=== PATIENT | male | born 1950 | race Caucasian/White ===

== ENCOUNTER 2017-03-01 01:30 | Emergency (ER) | payer MEDICAID ==
[~2017-03-01] VITALS: Ht 180.3 cm; Wt 81.6 kg
[~2017-03-01 01:30] MED LIST: LISIPOW
[2017-03-01] MEDS ORDERED: SODIUM CHLORIDE 0.9% 1,000 ML IVB ONE (06:17)
[2017-03-01] MEDS ORDERED: SODIUM CHLORIDE 0.9% 1,000 ML IV ONE ×2 (08:03)
[2017-03-01 12:03] VITALS: BP 142/78
== END 2017-03-01 14:13 | disposition home or self-care (01) ==
LOC: EDSEX 01:30 → ER 01:30 → EDBD 01:30 → ER 14:13
DX: F10.120 Alcohol abuse with intoxication, uncomplicated (principal); Z90.49 Acquired absence of other specified parts of digestive tract
CPT/HCPCS: 36415; 80320; 96360; 96361; 99284; J7030

== ENCOUNTER 2017-11-06 10:33 | Emergency (ER) | payer MEDICARE, MEDICAID ==
[~2017-11-06] VITALS: Ht 185.4 cm; Wt 88.5 kg
[2017-11-06 12:16] LABS: Amphetamine Screen, Urine NEGATIVE (NEGATIVE); Barbiturate Scree,Urine NEGATIVE (NEGATIVE); Benzodiazephine Screen, Urine NEGATIVE (NEGATIVE); Cannabinoid Screen, Urine NEGATIVE (NEGATIVE); Cocaine Screen, Urine NEGATIVE (NEGATIVE); Opiate Scree,Urine NEGATIVE (NEGATIVE); Phencyclidine Screen, Urine NEGATIVE (NEGATIVE)
[2017-11-06 12:18] LABS: Urine Bacteria NONE SEEN /hpf (None Seen); Urine Blood Negative /uL (Negative); Urine Specific Gravity 1.005 (1.001-1.035); Urine WBC <1 /hpf (0 - 3)
[2017-11-06 12:37] LABS: Basophils # (auto) 0.1 uL; Basophils % (auto) 0.7 % (0.0-2.0); Eosinophils # (auto) 0.1 uL; Eosinophils % (auto) 1.1 % (0.0-7.0); Hematocrit 44.5 % (41.0-53.0); Hemoglobin 15.3 g/dL (13.5-17.5); Lymphocytes # (auto) 1.9 uL; Lymphocytes % (auto) 22.9 % (10.0-50.0); Mean Corpuscular Hemoglobin 30.5 pg (28.0-32.0); Mean Corpuscular Hgb Conc. 34.4 g/dL (32.0-36.0); Mean Corpuscular Volume 88.7 fL (80.0-100.0); Monocytes # (auto) 0.4 uL; Neutrophils # (auto) 5.7 uL; Neutrophils % (auto) 70.3 % (37.0-80.0); Nucleated Red Blood Cells % 0.4 %; Platelet Count (auto) 251 10^3/uL (140-450); Red Blood Cells 5.01 10^6/uL (4.5-5.90); Red Cell Distribution Width 18.6 % (11.8-14.3); White Blood Cell 8.2 10^3/uL (4.4-10.8)
[2017-11-06 13:01] LABS: Alanine Aminotransferase 41 U/L (16-61); Albumin 4.1 g/dL (3.4-5.0); Alkaline Phosphatase 136 U/L (45-117); Anion Gap 11 (5-15); Aspartate Aminotransferase 30 U/L (15-37); BUN/Creatinine Ratio 12.3; Bilirubin, Total 0.4 mg/dL (0.2-1.0); Blood Urea Nitrogen 10 mg/dL (7-18); Calcium 8.7 mg/dL (8.5-10.1); Carbon Dioxide 24 mmol/L (21-32); Chloride 105 mmol/L (98-107); GFR African American 123 mL/min; GFR Non-African American 102 mL/min; Glucose 106 mg/dL (74-106); Potassium 3.9 mmol/L (3.5-5.1); Sodium 140 mmol/L (136-145); Total Protein 8.7 g/dL (6.4-8.2)
[2017-11-06 13:04] LABS: Lactic Acid w/Reflex 2.2 mmol/L (0.4-2.0)
[2017-11-06] MEDS ORDERED: SODIUM CHLORIDE 0.9% 1,000 ML IV ONE ×2 (13:36)
[2017-11-06] MEDS ORDERED: THIAMINE HCL 100 MG/ML 2ML VIAL IV ONE (13:45)
[2017-11-06] MEDS ORDERED: cefTRIAXone 1GM/10ml IVPUSH 10 ML IV ONE (13:45)
[2017-11-06] MEDS ORDERED: HYDROcodone-ACET 10/325MG TAB PO ONE (15:00)
[2017-11-06 18:00] VITALS: BP 121/83
== END 2017-11-06 18:28 | disposition home or self-care (01) ==
LOC: ER 10:33 → EDBD 10:33 → ER 18:28
DX: E87.2 Acidosis (principal); I10 Essential (primary) hypertension; Z89.432 Acquired absence of left foot
CPT/HCPCS: 36415; 70450; 71045; 80053; 80307; 80320; 81001; 83605; 84484; 85025; 87040; 93005; 94761; 96361; 96374; 96375; 99285; J3411; J7030

== ENCOUNTER 2018-12-31 11:27 | Emergency (ER) | payer MEDICARE, MEDICAID ==
[~2018-12-31] VITALS: Ht 180.3 cm; Wt 81.6 kg
[2018-12-31 13:55] LABS: Basophils # (auto) 0 uL; Basophils % (auto) 0.4 % (0.0-2.0); Eosinophils # (auto) 0.1 uL; Eosinophils % (auto) 0.9 % (0.0-7.0); Hematocrit 38.4 % (41.0-53.0); Hemoglobin 12.9 g/dL (13.5-17.5); Lymphocytes # (auto) 1.2 uL; Lymphocytes % (auto) 13.4 % (10.0-50.0); Mean Corpuscular Hemoglobin 32.7 pg (28.0-32.0); Mean Corpuscular Hgb Conc. 33.6 g/dL (32.0-36.0); Mean Corpuscular Volume 97.2 fL (80.0-100.0); Monocytes # (auto) 0.5 uL; Monocytes % (auto) 5.7 % (0.0-12.0); Neutrophils # (auto) 7.1 uL; Neutrophils % (auto) 79.6 % (37.0-80.0); Platelet Count (auto) 289 10^3/uL (140-450); Red Blood Cells 3.95 10^6/uL (4.5-5.90); Red Cell Distribution Width 14.2 % (11.8-14.3); White Blood Cell 8.9 10^3/uL (4.4-10.8)
[2018-12-31 14:11] LABS: Albumin 3.4 g/dL (3.4-5.0); Potassium 4.1 mmol/L (3.5-5.1)
[2018-12-31 14:13] LABS: BUN/Creatinine Ratio 26.6; Bilirubin, Total 0.8 mg/dL (0.2-1.0); Total Protein 7.5 g/dL (6.4-8.2)
[2018-12-31] MEDS ORDERED: SODIUM CHLORIDE 0.9% 1,000 ML IVB ONE (17:14)
[2018-12-31] MEDS ORDERED: cefTRIAXone 1GM/50ML D5W 50 ML IV ONE (17:15)
[2018-12-31] MEDS ORDERED: HYDROcodone-ACET 10/325MG TAB PO ONE (18:45)
[2018-12-31 18:56] LABS: Urine Bacteria FEW /hpf (None Seen); Urine Blood 2+ /uL (Negative); Urine Mucus FEW (None Seen); Urine Specific Gravity 1.031 (1.001-1.035); Urine WBC 20 /hpf (0 - 3)
[2018-12-31 19:15] VITALS: BP 134/86
== END 2018-12-31 20:21 | disposition home or self-care (01) ==
LOC: ER 11:32
DX: T83.098A Other mechanical complication of other urinary catheter, initial encounter (principal); T83.511A Infection and inflammatory reaction due to indwelling urethral catheter, initial encounter; I25.10 Atherosclerotic heart disease of native coronary artery without angina pectoris; I10 Essential (primary) hypertension; Z90.49 Acquired absence of other specified parts of digestive tract; Z79.899 Other long term (current) drug therapy; Z98.61 Coronary angioplasty status; Y84.6 Urinary catheterization as the cause of abnormal reaction of the patient, or of later complication, without mention of misadventure at the time of the procedure; Y92.89 Other specified places as the place of occurrence of the external cause
CPT/HCPCS: 36415; 51702; 74176; 80053; 81001; 85025; 94761; 96365; 99284; J0696; J7030

== ENCOUNTER 2019-01-12 14:36 | Inpatient (IN) | payer MEDICARE, MEDICAID | END 2019-01-13 16:58 | disposition home or self-care (01) | LOC: TELE 01-13 00:16 → ER 14:36 → TELE-WESTW 01-13 02:51 ==

== ENCOUNTER 2019-06-16 17:47 | Emergency (ER) | payer MEDICARE, MEDICAID ==
[~2019-06-16] VITALS: Ht 177.8 cm; Wt 86.2 kg
[2019-06-16 19:11] LABS: Basophils # (auto) 0 uL; Eosinophils # (auto) 0 uL; Hematocrit 38.6 % (41.0-53.0); Hemoglobin 13.5 g/dL (13.5-17.5); Lymphocytes # (auto) 0.7 uL; Monocytes # (auto) 0.5 uL; Neutrophils # (auto) 4.6 uL; Nucleated Red Blood Cells % 0.1 %; White Blood Cell 5.8 10^3/uL (4.4-10.8)
[2019-06-16 19:13] LABS: Basophils % (auto) 0.2 % (0.0-2.0); Eosinophils % (auto) 0.3 % (0.0-7.0); Lymphocytes % (auto) 12.5 % (10.0-50.0); Mean Corpuscular Hemoglobin 35.4 pg (28.0-32.0); Mean Corpuscular Hgb Conc. 34.9 g/dL (32.0-36.0); Mean Corpuscular Volume 101.4 fL (80.0-100.0); Monocytes % (auto) 8.3 % (0.0-12.0); Neutrophils % (auto) 78.7 % (37.0-80.0); Platelet Count (auto) 115 10^3/uL (140-450); Red Blood Cells 3.81 10^6/uL (4.5-5.90); Red Cell Distribution Width 14.6 % (11.8-14.3)
[2019-06-16 19:36] LABS: Albumin 3.6 g/dL (3.4-5.0); Calcium 8.8 mg/dL (8.5-10.1); Potassium 3.8 mmol/L (3.5-5.1)
[2019-06-16 19:39] LABS: Bilirubin, Total 2.5 mg/dL (0.2-1.0); Total Protein 7.3 g/dL (6.4-8.2)
[2019-06-16] MEDS ORDERED: FOLIC ACID 1 MG, MULTIPLE VITAMIN 10 ML, MAGNESIUM SULF SDV 50% 8 MEQ, THIAMINE INJ 100... INJ SCH ×5 (22:00)
[2019-06-16] MEDS ORDERED: LEVETIRACETAM INJ 1,000 MG in D5W 5% 100 ML IV ONE (22:00)
[2019-06-16] MEDS ORDERED: LORazepam 2MG/ML-1ML VIAL IV ONE (22:00)
[2019-06-16] MEDS ORDERED: LEVETIRACETAM 500 MG/5ML INJ IV ONE (22:14)
[2019-06-16] MEDS ORDERED: LORazepam 0.5 MG TAB PO ONE (22:45)
[2019-06-16 22:55] VITALS: BP 124/71
== END 2019-06-16 23:00 | disposition home or self-care (01) ==
LOC: EDBD 17:47 → ER 17:54
DX: G40.909 Epilepsy, unspecified, not intractable, without status epilepticus (principal); F10.239 Alcohol dependence with withdrawal, unspecified; K70.30 Alcoholic cirrhosis of liver without ascites; I10 Essential (primary) hypertension; I25.2 Old myocardial infarction; Z98.61 Coronary angioplasty status; Y90.9 Presence of alcohol in blood, level not specified
CPT/HCPCS: 36415; 70450; 80053; 80320; 85025; 96365; 99284; J1953; J7060; 96374

== ENCOUNTER 2020-01-13 21:25 | Inpatient (IN) | payer MEDICARE, MEDICAID ==
[~2020-01-13] VITALS: Ht 182.9 cm; Wt 90.5 kg
[2020-01-13 22:33] LABS: Basophils # (auto) 0.1 10 ^3/uL (0-0.2); Basophils % (auto) 1.4 % (0.0-2.0); Eosinophils # (auto) 0.1 10 ^3/uL (0-0.8); Eosinophils % (auto) 1.3 % (0.0-7.0); Hematocrit 35.6 % (41.0-53.0); Hemoglobin 12.1 g/dL (13.5-17.5); Lymphocytes # (auto) 0.7 10 ^3/uL (0.4-5.4); Mean Corpuscular Hemoglobin 35.1 pg (28.0-32.0); Mean Corpuscular Hgb Conc. 34.1 g/dL (32.0-36.0); Mean Corpuscular Volume 102.8 fL (80.0-100.0); Monocytes # (auto) 0.4 10 ^3/uL (0-1.3); Monocytes % (auto) 8.6 % (0.0-12.0); Neutrophils # (auto) 3.8 10 ^3/uL (1.6-8.6); Neutrophils % (auto) 74.7 % (37.0-80.0); Nucleated Red Blood Cells % 0.4 %; Platelet Count (auto) 238 10^3/uL (140-450); Red Blood Cells 3.46 10^6/uL (4.5-5.90); Red Cell Distribution Width 15.3 % (11.8-14.3); White Blood Cell 5.1 10^3/uL (4.4-10.8)
[2020-01-13 23:07] LABS: Albumin 3.1 g/dL (3.4-5.0); BUN/Creatinine Ratio 9.2; Calcium 8.2 mg/dL (8.5-10.1); Potassium 3.8 mmol/L (3.5-5.1)
[2020-01-13 23:25] LABS: Bilirubin, Total 1.1 mg/dL (0.2-1.0); Total Protein 6.7 g/dL (6.4-8.2)
[2020-01-14] MEDS ORDERED: ACETAMINOPHEN 325 MG TAB PO PRN (02:45)
[2020-01-14] MEDS ORDERED: MORPHINE SULFATE 4 MG/ML SYR/VIAL IV PRN (02:45)
[2020-01-14] MEDS ORDERED: ONDANSETRON HCL 4 MG/2 ML VIAL IV PRN (02:45)
[2020-01-14] MEDS ORDERED: LORazepam 0.5 MG TAB PO PRN (02:45)
[2020-01-14] MEDS ORDERED: DOCUSATE SOD 100 MG CAP PO PRN (02:45)
[2020-01-14] MEDS ORDERED: IPRATROPIUM BROM 0.5 MG/2.5ML INH SOL NEB PRN (03:00)
[2020-01-14] MEDS ORDERED: ALBUTEROL SULF 2.5 MG/0.5ML(0.5%) NEB SOLN NEB PRN (03:00)
[2020-01-14 03:28] VITALS: BP 140/104
--- NOTE | 2020-01-14 03:28 | NUR ---
Telemetry admit from ER NIECYSURINDER admitted to Telemetry unit after SBAR received. Patient oriented to Jeana camp RN, unit, room, bed, and unit policies regarding patient care and visiting hours. Patient now on continuous telemetry monitoring, tele box # 76 and telemetry reading on arrival to unit is SR89,1st.degree heart block. Patient placed on bedside oxygen, weighed by bed scale and encouraged to call if they need something. All questions and concerns addressed, patient verbalized understanding. Note: Came per wheelchair awake alert oriented x 4, not in resp. distress, placed in the bed comfortably, vital signs checked.
[2020-01-14] MEDS: SODIUM CHLORIDE 0.9% 1,000 ML IV SCH ×3 (04:23→18:50)
[2020-01-14] MEDS: HYDROcodone-ACET 5/325MG TAB PO PRN ×2 (04:23→17:10)
[2020-01-14] MEDS ORDERED: ISOS30TA4 PO (04:52)
[2020-01-14] MEDS ORDERED: METO25TA93 (04:52)
[2020-01-14] MEDS ORDERED: TAMS1CAP25 (04:52)
--- NOTE | 2020-01-14 04:55 | NUR ---
Spoke with patient's sister Rae Small regarding patient's home medications. Rae unable to provide information about medications at this time, but stated she would call back with information. Primary RN Jennifer rose.
[2020-01-14 05:00] VITALS: BP 163/88
[2020-01-14 07:02] LABS: Basophils # (auto) 0 10 ^3/uL (0-0.2); Eosinophils # (auto) 0.1 10 ^3/uL (0-0.8); Hemoglobin 12.4 g/dL (13.5-17.5); Monocytes # (auto) 0.4 10 ^3/uL (0-1.3)
[2020-01-14 07:04] LABS: Basophils % (auto) 0.6 % (0.0-2.0); Eosinophils % (auto) 1.7 % (0.0-7.0); Hematocrit 36.6 % (41.0-53.0); Lymphocytes # (auto) 0.6 10 ^3/uL (0.4-5.4); Lymphocytes % (auto) 11.2 % (10.0-50.0); Mean Corpuscular Hemoglobin 34.9 pg (28.0-32.0); Mean Corpuscular Hgb Conc. 33.8 g/dL (32.0-36.0); Mean Corpuscular Volume 103.2 fL (80.0-100.0); Neutrophils # (auto) 4.1 10 ^3/uL (1.6-8.6); Neutrophils % (auto) 78.5 % (37.0-80.0); Nucleated Red Blood Cells % 0.2 %; Platelet Count (auto) 239 10^3/uL (140-450); Red Blood Cells 3.55 10^6/uL (4.5-5.90); Red Cell Distribution Width 15.3 % (11.8-14.3); White Blood Cell 5.2 10^3/uL (4.4-10.8)
[2020-01-14 07:05] LABS: Urine Bacteria NONE SEEN /hpf (None Seen); Urine Blood Negative /uL (Negative); Urine Specific Gravity 1.007 (1.001-1.035); Urine WBC 1 /hpf (0 - 3)
--- NOTE | 2020-01-14 07:05 | NUR ---
Report given to Mya, patient is resting no distress.
--- NOTE | 2020-01-14 07:07 | NUR ---
Opening Shift Note: Assumed care of patient, awake and alert. No S/S of distress/SOB or pain. Bed in lowest locked position, side rails up x2, call light within reach. Patient instructed on POC and to call for assist PRN, will continue to monitor for changes Q1hr and PRN.
[2020-01-14 07:29] LABS: Amphetamine Screen, Urine NEGATIVE (NEGATIVE); Barbiturate Scree,Urine NEGATIVE (NEGATIVE); Benzodiazephine Screen, Urine NEGATIVE (NEGATIVE); Cannabinoid Screen, Urine NEGATIVE (NEGATIVE); Cocaine Screen, Urine NEGATIVE (NEGATIVE); Opiate Scree,Urine NEGATIVE (NEGATIVE); Phencyclidine Screen, Urine NEGATIVE (NEGATIVE)
[2020-01-14 07:31] LABS: Calcium 8.5 mg/dL (8.5-10.1); Potassium 3.9 mmol/L (3.5-5.1)
--- NOTE | 2020-01-14 08:38 | NUR ---
PAIN Patient states pain level 8/10 in back and knees. Appropriate medications given. Will continue to monitor.
[2020-01-14 09:00] VITALS: BP 134/85
--- NOTE | 2020-01-14 09:15 | NUR ---
PAIN REASSESSMENT Patient states pain level 5/10. Patient provided with heat pack at this time.
[2020-01-14] MEDS: CYANOCOBALAMIN 500 MCG TAB PO SCH (09:51)
[2020-01-14] MEDS: ASPirin 81 mg TAB PO SCH (09:51)
[2020-01-14] MEDS: FOLIC ACID 1 MG TAB PO SCH (09:52)
[2020-01-14] MEDS ORDERED: LISINOPRIL 10 MG TAB PO SCH (10:00)
[2020-01-14 13:00] VITALS: BP 139/89
--- NOTE | 2020-01-14 13:24 | NUR ---
Dr. Ronquillo paged at this time regarding possible DTs.
--- NOTE | 2020-01-14 13:45 | NUR ---
Dr. Ronquillo called back. New orders received, read back and verified.
[2020-01-14] MEDS ORDERED: THIAMINE HCL 100 MG TAB PO ONE (14:00)
[2020-01-14] MEDS ORDERED: MULTIPLE VITAMIN TAB PO ONE (14:00)
--- NOTE | 2020-01-14 14:26 | NUR ---
Dr. Ronquillo called regarding home medications. Per Dr. Ronquillo "I will figure it out tomorrow." Information relayed to patient. Patient verbally agreed. Will continue to monitor.
[2020-01-14 16:52] VITALS: BP 144/96
[2020-01-14] MEDS: chlordiazePOXIDE HCL 25 MG CAP PO SCH ×2 (17:09→23:37)
--- NOTE | 2020-01-14 17:10 | NUR ---
PAIN Patient states pain level 6/10. Appropriate pain medication given. Will continue to monitor.
[2020-01-14] MEDS ORDERED: ATORVASTATIN 20 MG TAB PO SCH (18:00)
--- NOTE | 2020-01-14 18:10 | NUR ---
PAIN REASSESSMENT PATIENT STATES PAIN LEVEL 3/10. PER PATIENT "PAIN IS BETTER." WILL CONTINUE TO MONITOR.
[2020-01-14] MEDS ORDERED: ISOSORBIDE MONONITRATE ER 60 MG TAB PO ONE (18:30)
--- NOTE | 2020-01-14 19:19 | NUR ---
CLOSING NOTE: Patient resting in bed. No S/S of pain distress or SOB at this time. Care endorsed to NOC RN.
--- NOTE | 2020-01-14 20:00 | NUR ---
DR VALENTINO, NEURO AT BEDSIDE TO SEE PATIENT. ORDERS MADE AND TO FOLLOW. NOTED.
[2020-01-14] MEDS ORDERED: LORazepam 2MG/ML-1ML VIAL IV PRN (21:00)
[2020-01-14] MEDS: MORPHINE SULF INJ 2 MG/ML SYRINGE 1ML IV PRN (21:01)
[2020-01-14 21:19] VITALS: BP 135/85
[2020-01-15 01:18] VITALS: BP 135/85
[2020-01-15] MEDS: chlordiazePOXIDE HCL 25 MG CAP PO SCH ×2 (04:40→11:07)
[2020-01-15] MEDS: MORPHINE SULF INJ 2 MG/ML SYRINGE 1ML IV PRN (04:40)
[2020-01-15 05:33] VITALS: BP 151/93
[2020-01-15 06:38] LABS: Calcium 8.3 mg/dL (8.5-10.1); Potassium 4.2 mmol/L (3.5-5.1)
[2020-01-15 06:43] LABS: BUN/Creatinine Ratio 14.3; Bilirubin, Total 1.8 mg/dL (0.2-1.0); Total Protein 6.3 g/dL (6.4-8.2)
--- NOTE | 2020-01-15 07:20 | NUR ---
Opening Shift Note Assumed care of patient, resting in bed with eyes closed. No S/S of distress/SOB or pain.Bed is set in lowest locked position with side rails up x 2 for safety, seizure precautions in place and call light is within reach. Will continue to monitor for changes Q1hr and PRN.
[2020-01-15 08:05] VITALS: BP 133/90
--- NOTE | 2020-01-15 08:35 | NUR ---
PT ASSESSED FOR PRN HHN TX. PT IS ON ROOM AIR, SPO2 93%, HR 83, RR 18. NO S/S OF RESPIRATORY DISTRESS. HHN TX NOT INDICATED AT THIS TIME. WILL CONTINUE TO MONITOR.
--- NOTE | 2020-01-15 08:38 | NUR ---
MD at bedside Dr. Ronquillo, updated pt on POC and plans for discharge. Patient verbalized understanding.
[2020-01-15] MEDS: SODIUM CHLORIDE 0.9% 1,000 ML IV SCH (08:42)
[2020-01-15 09:00] VITALS: BP 133/90
[2020-01-15] MEDS: HYDROcodone-ACET 5/325MG TAB PO PRN ×2 (09:04→14:42)
[2020-01-15] MEDS ORDERED: ENOXAPARIN SOD 40 MG/0.4 ML SYRINGE SC SCH (10:00)
[2020-01-15] MEDS ORDERED: MULTIPLE VITAMIN TAB PO SCH (10:00)
[2020-01-15] MEDS ORDERED: METOPROLOL SUCCINATE XL 50 MG TAB PO SCH (10:00)
[2020-01-15] MEDS ORDERED: ISOSORBIDE MONONITRATE ER 60 MG TAB PO SCH (10:00)
[2020-01-15] MEDS ORDERED: PANTOPRAZOLE 40 MG TAB PO SCH (10:00)
--- NOTE | 2020-01-15 10:00 | NUR ---
Patient off unit Taken down to MRI via wheelchair, no distress noted upon departure.
[2020-01-15] MEDS: ASPirin 81 mg TAB PO SCH (11:04)
[2020-01-15] MEDS: CYANOCOBALAMIN 500 MCG TAB PO SCH (11:05)
[2020-01-15] MEDS: FOLIC ACID 1 MG TAB PO SCH (11:06)
--- NOTE | 2020-01-15 11:19 | NUR ---
Received Social Service consult due to pt's use of alcohol. Pt states he does not drink that much, only a few drinks a day. Pt states it is not a problem for himself. Gave pt a list of resources for assistance including [facility]. ([phone]) Inpatient and [phone]. Also Alcoholics Anonymous. [phone] [facility] [phone]. Pt did accept the packet.
[2020-01-15] MEDS ORDERED: FOLI1TAB6 PO (11:23)
[2020-01-15] MEDS ORDERED: MULTTAB99 PO (11:23)
[2020-01-15] MEDS ORDERED: THIA100T5 PO (11:24)
--- NOTE | 2020-01-15 12:40 | NUR ---
PER CHICHO, EEG CAN BE DONE OUTPATIENT. CARLITOS LOFTON NOTIFIED
[2020-01-15 13:00] VITALS: BP 121/74
--- NOTE | 2020-01-15 14:01 | NUR ---
re-assessment Per ss consult [facility] for safety, medication management, vitals. Clare ENGEL spoke with patient and he has no preference on who provides service. order sent to [facility]. Per Mili service will start on 01/17/2020. Patient has been notified. Addendum: 01/15/20 at 1403 by Sadaf Negro Amended: Links added.
[2020-01-15 15:13] VITALS: BP 121/74
--- NOTE | 2020-01-15 16:28 | NUR ---
Discharge instructions given as ordered. Encourage to follow up with PMD as instructed. All questions and concerns addressed. Patient verbalized understanding. IV removed with catheter intact, pressure dressing applied. Telemetry unit returned to ICU. Patient taken to vehicle via wheelchair with all personal belongings, accompanied by staff and taken down to sister's vehicle. No distress noted at time of departure.
[2020-01-15] MEDS ORDERED: TAMSULOSIN HYDROCHLORIDE 0.4 MG CAP PO SCH (18:00)
== END 2020-01-15 16:30 | disposition home health service (06) | DRG 52 ==
LOC: EDBD 21:25 → ER 21:30 → TELE 21:31 → TELE-WESTW 01-14 03:29
PROVIDERS: ADMIT Hospitalist; ATTEND Internal Medicine
DX: G92 Toxic encephalopathy (principal); R56.9 Unspecified convulsions; J44.9 Chronic obstructive pulmonary disease, unspecified; F10.129 Alcohol abuse with intoxication, unspecified; I25.10 Atherosclerotic heart disease of native coronary artery without angina pectoris; I10 Essential (primary) hypertension; N40.0 Benign prostatic hyperplasia without lower urinary tract symptoms; Y90.6 Blood alcohol level of 120-199 mg/100 ml; R32 Unspecified urinary incontinence; G58.9 Mononeuropathy, unspecified; K59.00 Constipation, unspecified; Z91.19 Patient's noncompliance with other medical treatment and regimen; I25.2 Old myocardial infarction; Z90.49 Acquired absence of other specified parts of digestive tract; Z95.5 Presence of coronary angioplasty implant and graft; Z82.49 Family history of ischemic heart disease and other diseases of the circulatory system; Z89.432 Acquired absence of left foot; Z79.899 Other long term (current) drug therapy; Z86.14 Personal history of Methicillin resistant Staphylococcus aureus infection; Z82.5 Family history of asthma and other chronic lower respiratory diseases; Z71.41 Alcohol abuse counseling and surveillance of alcoholic
CPT/HCPCS: 36415; 70450; 70551; 80048; 80053; 80061; 80307; 80320; 81001; 83036; 83735; 84443; 85025; 93005; 96361; 96374; 96375; G0378

== ENCOUNTER 2020-03-13 22:04 | Inpatient (IN) | payer MEDICARE, MEDICAID ==
[~2020-03-13] VITALS: Ht 190.5 cm; Wt 96.7 kg
[~2020-03-13 22:04] MED LIST changes: +FOLI1TAB6 PO; +ISOS30TA4 PO; -LISIPOW; +METO25TA93; +MULTTAB99 PO; +TAMS1CAP25; +THIA100T5 PO
[2020-03-13] MEDS ORDERED: SODIUM CHLORIDE 0.9% 1,000 ML IV ONE (22:31)
[2020-03-13] MEDS ORDERED: THIAMINE 100mg/ml INJ (200mg/2ml VIAL) IV ONE (22:45)
[2020-03-13 22:58] LABS: Basophils # (auto) 0 10 ^3/uL (0-0.2); Basophils % (auto) 0.5 % (0.0-2.0); Eosinophils # (auto) 0 10 ^3/uL (0-0.8); Eosinophils % (auto) 0.2 % (0.0-7.0); Hematocrit 37.6 % (41.0-53.0); Hemoglobin 12.7 g/dL (13.5-17.5); Lymphocytes # (auto) 0.3 10 ^3/uL (0.4-5.4); Lymphocytes % (auto) 7.9 % (10.0-50.0); Mean Corpuscular Hemoglobin 33.5 pg (28.0-32.0); Mean Corpuscular Hgb Conc. 33.6 g/dL (32.0-36.0); Mean Corpuscular Volume 99.5 fL (80.0-100.0); Monocytes # (auto) 0.3 10 ^3/uL (0-1.3); Neutrophils # (auto) 3.3 10 ^3/uL (1.6-8.6); Neutrophils % (auto) 83.4 % (37.0-80.0); Nucleated Red Blood Cells % 0.1 %; Platelet Count (auto) 104 10^3/uL (140-450); Red Blood Cells 3.78 10^6/uL (4.5-5.90); White Blood Cell 3.9 10^3/uL (4.4-10.8)
[2020-03-13 23:10] LABS: Albumin 3.3 g/dL (3.4-5.0); Calcium 7.8 mg/dL (8.5-10.1); Potassium 4.4 mmol/L (3.5-5.1)
[2020-03-13 23:18] LABS: Bilirubin, Total 2.5 mg/dL (0.2-1.0)
[2020-03-13 23:21] LABS: BUN/Creatinine Ratio 7.8
[2020-03-13 23:59] LABS: INR 1.22 (0.9-1.15); Partial Thromboplastin Time 29.3 sec (23.64-32.05)
[2020-03-14] MEDS ORDERED: LORazepam 2MG/ML-1ML VIAL IV ONE ×2 (04:00→06:00)
[2020-03-14] MEDS ORDERED: ONDANSETRON HCL 4 MG/2 ML VIAL IV PRN (04:30)
[2020-03-14] MEDS ORDERED: DOCUSATE SOD 100 MG CAP PO PRN (04:30)
[2020-03-14] MEDS ORDERED: ACETAMINOPHEN 325 MG TAB PO PRN (04:30)
[2020-03-14] MEDS: SODIUM CHLORIDE 0.9% 1,000 ML IV SCH ×2 (05:05→22:20)
[2020-03-14] MEDS: chlordiazePOXIDE HCL 25 MG CAP PO SCH ×3 (05:25→22:19)
[2020-03-14 07:03] LABS: Basophils # (auto) 0 10 ^3/uL (0-0.2); Eosinophils # (auto) 0 10 ^3/uL (0-0.8); Eosinophils % (auto) 0.4 % (0.0-7.0); Hemoglobin 11.9 g/dL (13.5-17.5); Lymphocytes # (auto) 0.3 10 ^3/uL (0.4-5.4); Monocytes # (auto) 0.3 10 ^3/uL (0-1.3); Neutrophils # (auto) 2.3 10 ^3/uL (1.6-8.6); Nucleated Red Blood Cells % 0.1 %; Red Cell Distribution Width 14.9 % (11.8-14.3)
[2020-03-14 07:04] LABS: Calcium 7.8 mg/dL (8.5-10.1); Potassium 3.7 mmol/L (3.5-5.1)
[2020-03-14 07:05] LABS: Basophils % (auto) 0.7 % (0.0-2.0); Hematocrit 34.9 % (41.0-53.0); Lymphocytes % (auto) 10.2 % (10.0-50.0); Mean Corpuscular Hemoglobin 34.5 pg (28.0-32.0); Mean Corpuscular Hgb Conc. 34.1 g/dL (32.0-36.0); Mean Corpuscular Volume 101.2 fL (80.0-100.0); Monocytes % (auto) 10.3 % (0.0-12.0); Neutrophils % (auto) 78.4 % (37.0-80.0); Platelet Count (auto) 92 10^3/uL (140-450); Red Blood Cells 3.45 10^6/uL (4.5-5.90)
[2020-03-14 07:08] LABS: BUN/Creatinine Ratio 8.3
--- NOTE | 2020-03-14 10:02 | NUR ---
Telemetry admit from ER NIECYSURINDER ABRAHAM admitted to Telemetry unit after SBAR received. Patient oriented to Beverly Lynn primary RN, unit, room, bed, and unit policies regarding patient care and visiting hours. Patient now on continuous telemetry monitoring, tele box #60 and telemetry reading on arrival to unit is SR 80's. Patient weighed by bed scale. Instructed patient on POC, fall precautions, and to call for assistance as needed. Patient verbalized understanding, although frequent reminders are needed due to patient's orientation of A&Ox self. Pressure injury prevention education provided. Patient mumbles answers, making speech unclear and difficult to understand. Fall precautions in place with call light within reach; bed alarm on for safety.
--- NOTE | 2020-03-14 10:30 | NUR ---
Patient urinated 900ml into urinal Clear yellow urine. No foul odor. This RN noticed patient attempting to exit the bed. Patient stated in mumbled speech "I need to go to the bathroom." Standby assistance provided with the urinal use. Bed alarm on for safety. call light within reach.
[2020-03-14 10:32] VITALS: BP 135/86
[2020-03-14 10:58] VITALS: BP 135/86
[2020-03-14] MEDS: ISOSORBIDE MONONITRATE ER 60 MG TAB PO SCH (11:17)
[2020-03-14] MEDS: METOPROLOL TARTRATE 25 MG TAB PO SCH ×2 (11:19→22:19)
[2020-03-14] MEDS: THIAMINE HCL 100 MG TAB PO SCH (11:19)
[2020-03-14] MEDS: TAMSULOSIN HYDROCHLORIDE 0.4 MG CAP PO SCH (11:20)
[2020-03-14] MEDS: MULTIPLE VITAMIN TAB PO SCH (11:20)
[2020-03-14] MEDS: FOLIC ACID 1 MG TAB PO SCH (11:20)
--- NOTE | 2020-03-14 11:21 | NUR ---
Patient tolerated PO medications with no complications Strict aspiration precautions used.
--- NOTE | 2020-03-14 11:40 | NUR ---
WOUND CARE NOTE: IN TO SEE PATIENT AT THIS TIME PER WOUND CARE CONSULT REQUEST. PATIENT RECENTLY ADMITTED TO [facility] WITH DIAGNOSIS OF ETOH INTOXICATION, CHRONIC ALCOHOLISM, DEHYDRATION, HX COPD. CURRENT HERMINIA SCORE IS 12. PATIENT IS ALOC, LETHARGIC D/T INTOXICATION. HE RECENTLY ADMITTED TO [facility] FROM ER. PATIENT NOTED TO HAVE MULTIPLE WOUNDS, INCLUDING SKIN TEAR TO THE LEFT WRIST, MULTIPLE OLD FADING PURPLE ECCHYMOSIS TO TRUNK/LIMBS, SLOW ALONZO REDNESS TO MEDIAL SACRUM, ABRASIONS, SCABBED TO BLE. ALL WOUNDS PHOTOGRAPHED AT THIS TIME FOR REFERENCE. PATIENT ALSO HAS A WELL HEALED LEFT FOOT STUMP, NO WOUNDS PRESENT TO STUMP. APPLIED THERAHONEY GAUZE AND OPTIFOAM GENTLE DRESSING TO PARTIALLY REAPPROXIMATED SKIN TEAR. RECOMMEND: FREQUENT TURN SCHEDULE Q 2 HOURS, PRN CONDITION PERMITS, WHILE PATIENT REMAINS ALTERED, Q 3 DAY/PRN DRESSING CHANGE TO LEFT WRIST, DIETARY CONSULT, SKIN/WOUND CARE PLAN, CONTINUED MONITORING BY WOUND CARE TEAM. Addendum: 03/14/20 at 1734 by Jackie Salas RN Amended: Links added.
--- NOTE | 2020-03-14 12:07 | NUR ---
Patient's sister called for an update. Rae, patient's sister, called for an update. Password obtained. Update provided. Rae provided [facility].
[2020-03-14 13:00] VITALS: BP 121/83
--- NOTE | 2020-03-14 13:30 | NUR ---
Patient resting in bed with eyes closed Respirations even and unlabored, no distress noted. Fall precautions in place with call light within reach; bed alarm on for safety.
--- NOTE | 2020-03-14 13:55 | NUR ---
Patient opened eyes to eat lunch meal Strict aspiration precautions in place. Standby assistance provided.
--- NOTE | 2020-03-14 14:06 | NUR ---
RE: Elevated HR Patient's HR on telemonitor reading showed increase in HR to the high 100's, ST. Patient sitting in bed with even and unlabored respirations, no distress noted. Patient denies SOB, or CP. Call light within reach.
--- NOTE | 2020-03-14 15:28 | NUR ---
Patient transferred to room 285A via hospital bed All personal belongings transferred with the patient.
--- NOTE | 2020-03-14 15:38 | NUR ---
Desaturation while repositioning in supine position Patient's face purple in color. Pulse ox 80% on room air after repositioning from supine to side to supine. Patient placed on 4LPM NC. Pulse ox 96% on 4LPM NC. Supplemental oxygen decreased to 2 LPM NC to maintain pulse ox of 98%. Respirations even and unlabored, no distress noted. Face color WNL.
--- NOTE | 2020-03-14 15:41 | NUR ---
MD was at bedside - Dr. Farah POC discussed with this RN. This RN was at bedside. Notified MD of desaturation while repositioning patent. MD verbalized understanding. Continue to monitor per MD order.
--- NOTE | 2020-03-14 15:50 | NUR ---
Updated patient's sister, Rae, on room change & patient's status. Rae verbalized understanding.
[2020-03-14] MEDS ORDERED: ISOS30TA4 PO (16:02)
[2020-03-14] MEDS ORDERED: TAMS0.4C36 PO (16:02)
[2020-03-14] MEDS ORDERED: HYDR-531 PO (16:02)
[2020-03-14] MEDS ORDERED: ATOR1TAB PO (16:02)
[2020-03-14] MEDS ORDERED: IPRAAER6 IN (16:02)
[2020-03-14] MEDS ORDERED: GABA-339 PO (16:02)
[2020-03-14] MEDS ORDERED: METO25TA93 PO (16:02)
[2020-03-14] MEDS ORDERED: CLOP75TA41 PO (16:02)
[2020-03-14] MEDS ORDERED: NITR0.4S29 SL (16:02)
--- NOTE | 2020-03-14 16:24 | NUR ---
Patient's sister, Marina Collado, called for an update Password obtained. Update provided. Marina stated "My sister Rae often gets the information messed up so it's better if I get called and updated and then I will relay it onto the others." Phone number of Marina is [phone].
--- NOTE | 2020-03-14 16:36 | NUR ---
assessment Per consult patient has concerns over safety at home and Alcoholism. Patient is confused. Patient has a sitter at bedside. Patient unable to do assessment. Will try again on Tuesday. Addendum: 03/14/20 at 1637 by Sadaf Negro Amended: Links added.
[2020-03-14 16:37] VITALS: BP 117/84
--- NOTE | 2020-03-14 18:04 | NUR ---
RE: Status Mental status assessed. Patient answered name & and the year correctly. Patient agreed that he is at the hospital. Patient stated "because I kept passing out." Instructed patient on POC. Patient verbalized understanding.
--- NOTE | 2020-03-14 18:42 | NUR ---
RE: urine specimen - incontinence Patient has had 2 episodes of incontinence. Staff unable to collect urine specimen. Specimen cup at bedside. Urinal at bedside.
--- NOTE | 2020-03-14 18:43 | NUR ---
Closing note Patient resting in bed with even and unlabored respirations, no distress noted. Fall precaution sin place with call light within reach. Sitter at bedside for safety.
--- NOTE | 2020-03-14 19:10 | NUR ---
Care endorsed to ROLLY Drummond.
[2020-03-14 22:00] VITALS: BP 123/82
[2020-03-15] MEDS: MORPHINE SULF INJ 2 MG/ML SYRINGE 1ML IV PRN ×2 (01:37→23:33)
[2020-03-15 05:00] VITALS: BP 125/78
--- NOTE | 2020-03-15 08:11 | NUR ---
OPENING SHIFT NOTE Assumed care of patient, awake and alert. No S/S of distress/SOB or pain. Bed in low and locked position. Sitter at bedside. Call light within reach. Instructed on POC and to call for assist PRN, will continue to monitor for changes Q1hr and PRN.
[2020-03-15] MEDS: THIAMINE HCL 100 MG TAB PO SCH (09:28)
[2020-03-15] MEDS: TAMSULOSIN HYDROCHLORIDE 0.4 MG CAP PO SCH (09:28)
[2020-03-15] MEDS: FOLIC ACID 1 MG TAB PO SCH (09:28)
[2020-03-15] MEDS: chlordiazePOXIDE HCL 25 MG CAP PO SCH ×2 (09:30→21:51)
[2020-03-15] MEDS: MULTIPLE VITAMIN TAB PO SCH (09:30)
[2020-03-15] MEDS: METOPROLOL TARTRATE 25 MG TAB PO SCH ×2 (09:31→21:51)
[2020-03-15] MEDS: ISOSORBIDE MONONITRATE ER 60 MG TAB PO SCH (09:31)
[2020-03-15] MEDS: SODIUM CHLORIDE 0.9% 1,000 ML IV SCH ×2 (14:30→21:51)
--- NOTE | 2020-03-15 14:34 | NUR ---
Nutrition Assessment/consult Notes please see attached link for complete assessment Est energy needs ABW 87 [id number] kcal (25-30 kcal/kg BW) Est protein needs 87-104g (1.0-1.2g/kg BW) will reassess prn. Addendum: 03/15/20 at [address] Amended: Links added.
--- NOTE | 2020-03-15 19:35 | NUR ---
Opening Shift Note Assumed care of patient, awake and alert. No S/S of distress/SOB or pain. Fall and safety precautions in place. Sitter at bedside for safety. Call light within reach and able to use. Instructed on POC and to call for assist PRN, patient verbalized understanding and in agreement. Will continue to monitor for changes Q1hr and PRN.
[2020-03-15] MEDS: LORazepam 2MG/ML-1ML VIAL IV PRN (20:27)
[2020-03-15 21:00] VITALS: BP 127/91
--- NOTE | 2020-03-15 22:00 | NUR ---
WOUND CARE / SCD APPLIED WOUND CARE PROVIDED, PER MD ORDER AND VENDOR REPRESENTATIVES REC. PATIENT TURNED. PATIENT TOLERATED WELL. PATIENT EDUCATED ON SCD AND APPLIED AT THIS TIME. WILL CONTINUE TO MONITOR.
[2020-03-16] MEDS: HYDROcodone-ACET 5/325MG TAB PO PRN (02:18)
[2020-03-16] MEDS: LORazepam 2MG/ML-1ML VIAL IV PRN ×2 (02:47→13:15)
[2020-03-16 05:00] VITALS: BP 132/95
--- NOTE | 2020-03-16 08:13 | NUR ---
OPENING SHIFT NOTE Resumed care of patient. PT is sleeping comfortably in bed. No S/S of distress/SOB or pain. Bed in low and locked position. Call light within reach. Sitter in room. Instructed on POC and to call for assist PRN, will continue to monitor for changes Q1hr and PRN.
[2020-03-16 09:00] VITALS: BP 125/83
[2020-03-16] MEDS: THIAMINE HCL 100 MG TAB PO SCH (10:39)
[2020-03-16] MEDS: METOPROLOL TARTRATE 25 MG TAB PO SCH ×2 (10:40→21:20)
[2020-03-16] MEDS: TAMSULOSIN HYDROCHLORIDE 0.4 MG CAP PO SCH (10:41)
[2020-03-16] MEDS: ISOSORBIDE MONONITRATE ER 60 MG TAB PO SCH (10:41)
[2020-03-16] MEDS: MULTIPLE VITAMIN TAB PO SCH (10:42)
[2020-03-16] MEDS: FOLIC ACID 1 MG TAB PO SCH (10:42)
[2020-03-16] MEDS: chlordiazePOXIDE HCL 25 MG CAP PO SCH ×2 (10:42→21:19)
[2020-03-16 13:00] VITALS: BP 129/86
[2020-03-16 17:00] VITALS: BP 100/89
--- NOTE | 2020-03-16 20:20 | NUR ---
ROOM TRANSFER PATIENT TRANSFERRED TO ROOM 277B FROM 285A. ALL BELONGINGS TRANSFERRED WITH PATIENT.
[2020-03-16 22:00] VITALS: BP 130/87
[2020-03-16] MEDS: SODIUM CHLORIDE 0.9% 1,000 ML IV SCH (23:07)
--- NOTE | 2020-03-17 02:30 | NUR ---
TACHY PATIENT'S HEART RATE 163 BPM. UPON ENTERING ROOM, PATIENT IS ATTEMPTING TO GET OUT OF BED AND HANDS AER SHAKING. PATIENT'S MUSCLE TONE IS WEAK. PATIENT STATES HE WANTS ALCOHOL. WILL ADMINISTER PRN FOR ETOH WITHDRAWAL. WILL CONTINUE TO MONITOR.
[2020-03-17] MEDS: LORazepam 2MG/ML-1ML VIAL IV PRN ×3 (02:47→21:58)
--- NOTE | 2020-03-17 02:50 | NUR ---
HEART RATE PATIENT HEART'S RATE IS NOW 83 BPM. WILL CONTINUE TO MONITOR.
--- NOTE | 2020-03-17 05:07 | NUR ---
RE: BLADDER SCAN PATIENT HAS NOT URINATED DURING THIS SHIFT. OBTAINED BLADDER SCAN OF PATIENT. GREATEST AMOUNT IS 249ML. PATIENT STATES HE IS UNABLE TO VOID. ON-CALL HOSP PAGED. AWAITING CALL BACK.
--- NOTE | 2020-03-17 05:12 | NUR ---
RECEIVED CALL BACK FROM ON-CALL HOSP RECEIVED NEW ORDER TO STRAIGHT CATH PATIENT. WILL CARRY OUT. WILL CONTINUE TO MONITOR PATIENT.
--- NOTE | 2020-03-17 05:35 | NUR ---
Layton catheter insertion Patient assessed via bladder scanner. Order obtained from . Patient educated on catheter and reason for insertion. All questions answered. Straight catheter inserted with clean sterile technique. removed 250ml of urine, patient states he feels some relief. Removed with no trauma. Patient tolerated well. Addendum: 03/17/20 at 0538 by HANNY MURPHY RN RN Straight* not Layton
[2020-03-17] MEDS: MORPHINE SULF INJ 2 MG/ML SYRINGE 1ML IV PRN (05:53)
[2020-03-17 06:35] LABS: Basophils # (auto) 0 10 ^3/uL (0-0.2); Basophils % (auto) 0.5 % (0.0-2.0); Eosinophils # (auto) 0 10 ^3/uL (0-0.8); Eosinophils % (auto) 0.5 % (0.0-7.0); Hematocrit 36.7 % (41.0-53.0); Hemoglobin 12.3 g/dL (13.5-17.5); Lymphocytes # (auto) 0.3 10 ^3/uL (0.4-5.4); Lymphocytes % (auto) 5.6 % (10.0-50.0); Mean Corpuscular Hgb Conc. 33.5 g/dL (32.0-36.0); Mean Corpuscular Volume 101.3 fL (80.0-100.0); Monocytes # (auto) 0.4 10 ^3/uL (0-1.3); Monocytes % (auto) 9.5 % (0.0-12.0); Neutrophils # (auto) 3.9 10 ^3/uL (1.6-8.6); Neutrophils % (auto) 83.9 % (37.0-80.0); Nucleated Red Blood Cells % 0.1 %; Platelet Count (auto) 117 10^3/uL (140-450); Red Blood Cells 3.63 10^6/uL (4.5-5.90); White Blood Cell 4.6 10^3/uL (4.4-10.8)
[2020-03-17 06:48] LABS: INR 1.35 (0.9-1.15); Partial Thromboplastin Time 30.3 sec (23.64-32.05)
[2020-03-17 06:55] LABS: Albumin 3.2 g/dL (3.4-5.0); Calcium 8.5 mg/dL (8.5-10.1); Potassium 3.8 mmol/L (3.5-5.1)
[2020-03-17 06:59] LABS: BUN/Creatinine Ratio 18.6; Bilirubin, Total 2.4 mg/dL (0.2-1.0); Magnesium 1.7 mg/dL (1.6-2.6); Phosphorus 2.2 mg/dL (2.5-4.90); Total Protein 6.6 g/dL (6.4-8.2)
[2020-03-17] MEDS ORDERED: chlordiazePOXIDE HCL 25 MG CAP PO SCH (07:00)
--- NOTE | 2020-03-17 07:30 | NUR ---
RECEIVED REPORT AND CONTINUATION OF CARE,PATIENT AWAKE,ALERT,ORIENTED VERY WEAK,NO DISTRESS NO DISCOMFORT.PATIENT INSTRUCTED EDUCATED ON PLAN OF CARE AND NURSING ROUTINES,CALL LIGHT WITHIN REACH,SIDE RAILS UP X2,PATIENT REMINDED INSTRUCTED TO CALL FOR ASSISTANCE,PATIENT VERBALIZED UNDERSTANDING.
[2020-03-17 09:00] VITALS: BP 145/95
--- NOTE | 2020-03-17 10:00 | NUR ---
PATIENT ASSISTED AND FED BREAKFAST
[2020-03-17] MEDS: TAMSULOSIN HYDROCHLORIDE 0.4 MG CAP PO SCH (10:30)
--- NOTE | 2020-03-17 10:30 | NUR ---
PATIENT VERY SHAKY,MEDICATED WITH ATIVAN 1 MG IV,SEE eMAR
[2020-03-17] MEDS: ISOSORBIDE MONONITRATE ER 60 MG TAB PO SCH (10:31)
[2020-03-17] MEDS: MULTIPLE VITAMIN TAB PO SCH (10:32)
[2020-03-17] MEDS: THIAMINE HCL 100 MG TAB PO SCH (10:32)
[2020-03-17] MEDS: METOPROLOL TARTRATE 25 MG TAB PO SCH ×2 (10:32→21:52)
[2020-03-17] MEDS: FOLIC ACID 1 MG TAB PO SCH (10:33)
--- NOTE | 2020-03-17 12:19 | NUR ---
YOBANI PATIENT SISTER CALLED UPDATED WITH PLAN OF CARE AFTER PASSWORD PROVIDED
[2020-03-17 13:00] VITALS: BP 143/70
[2020-03-17 17:00] VITALS: BP 132/91
--- NOTE | 2020-03-17 19:45 | NUR ---
Opening Shift Note Assumed care of patient, awake and alert. Fall and safety precautions in place. Call light within reach and able to use. Updated patient on his plan of care and to call for assist PRN, patient in agreement. Will continue to monitor for changes Q1hr and PRN.
--- NOTE | 2020-03-17 20:09 | NUR ---
RE: PERIPHERAL EDEMA / SOB UPON ASSESSMENT, PATIENT NOTED TO HAVE PERIPHERAL EDEMA +2 BLE WITH WEAK PULSES AND PATIENT APPEARS TO BE IN LABORED BREATHING 22 BPM. PATIENT HEART WHOOSHES IN SOUND UPON AUSCULTATION. PATIENT ASKED IF HE FEELS SOB, PATIENT STATES "A LITTLE." MEDICATIONS AND CONSULTS REVIEWED. ON-CALL HOSP PAGED. AWAITING CALL BACK
--- NOTE | 2020-03-17 21:00 | NUR ---
PATIENT PERSISTENTLY REMOVES TELE MONITOR EDUCATED PATIENT ON PURPOSE/IMPORTANCE OF CARDIAC MONITORING. WILL CONTINUE TO MONITOR.
--- NOTE | 2020-03-17 21:30 | NUR ---
ON-CALL HOSP ON-CALL HOSP CALLED BACK. UPDATED MD ON PATIENT STATUS: CHIEF COMPLAINT, PLAN OF CARE, VITAL SIGNS INCLUDING HEART RATE 163BPM, PHYSICAL ASSESSMENTS OF CARDIO AND RESPIRATORY SYSTEMS (SEE PREVIOUS NOTE). RECEIVED NEW ORDERS FOR SCHEDULED ETOH WITHDRAWALS, LASIX ONCE, AND PRNS FOR WITHDRAWAL SYMPTOMS AND PRN BREAKTHROUGH ETOH WITHDRAWAL SYMPTOMS. SEE NEW ORDERS. WILL CARRY OUT. WILL CONTINUE TO MONITOR PATIENT.
[2020-03-17] MEDS ORDERED: FUROSEMIDE 20 MG/2 ML VIAL IV ONE (21:45)
[2020-03-17] MEDS ORDERED: LORazepam 2MG/ML-1ML VIAL IV PRN (21:45)
[2020-03-17] MEDS: chlordiazePOXIDE HCL 25 MG CAP PO SCH (21:58)
[2020-03-17 22:00] VITALS: BP 126/87
--- NOTE | 2020-03-17 22:20 | NUR ---
ROOM TRANSFER PATIENT TRANSFERRED FROM B TO B WITH ALL PERSONAL BELONGINGS. SITTER AT BEDSIDE FOR PATIENT SAFETY.
--- NOTE | 2020-03-17 23:00 | NUR ---
FAMILY MEMBER CALLS AFTER PASSWORD CONFIRMED, YOBANI, PATIENT'S SISTER CALLS. ALL QUESTIONS/CONCERNS ANSWERED AND ADDRESSED. INFORMED HER THAT PATIENT HAS PENDING SS CONSULT FOR PLACEMENT. SHE STATES SHE WOULD LIKE SNF PLACEMENT DUE TO INABILITY TO CARE FOR PATIENT BEING IN THE STATE THAT HE IS IN. SHE STATES SHE WILL CALL BACK AROUND 0900 ON 03/18/20 IN [place] TO HEAR FOR SS CONSULT UPDATE. WILL INFORM DAY SHIFT RN.
--- NOTE | 2020-03-18 | NUR ---
Wound Care Left forearm skin tear wound care provided. Sacral optifoam and moisture barrier cream applied after patient has episode of urine incontinence. Patient tolerated well. Will continue to monitor.
[2020-03-18] MEDS: MORPHINE SULF INJ 2 MG/ML SYRINGE 1ML IV PRN ×2 (00:59→05:29)
--- NOTE | 2020-03-18 01:25 | NUR ---
IV insertion IV access obtained, via clean sterile technique by inserting 22 gauge catheter at left hand on first attempt. IV secured properly. No trauma to site. Patient tolerated well.
[2020-03-18] MEDS: LORazepam 2MG/ML-1ML VIAL IV PRN ×2 (02:45→06:46)
--- NOTE | 2020-03-18 04:50 | NUR ---
Breakthrough prn Patient's heart rate >150bpm. Upon entering room, patient is extremely shaky and trying to get out of bed. Patient appears extremely restless. Will administer prn breakthrough medication (see emar for administration). Will continue to monitor.
[2020-03-18 05:00] VITALS: BP 136/85
--- NOTE | 2020-03-18 05:00 | NUR ---
IV removal Right FA IV DC'd with clean sterile technique, catheter fully intact. Pressure dressing applied to site. Patient tolerated well.
--- NOTE | 2020-03-18 07:30 | NUR ---
OPENING SHIFT RECEIVED REPORT AND CONTINUATION OF CARE,PATIENT VERY SLEEPY, VERY WEAK AND WITH MINIMAL SHAKING NO DISTRESS NO DISCOMFORT.PER BELT PICKER PATIENT ATE SMALL AMOUNT OF BREAKFAST ONLY.PATIENT INSTRUCTED ON PLAN OF CARE AND NURSING ROUTINES,CALL LIGHT WITHIN REACH,SIDE RAILS UP X2,BELT PICKER AT BEDSIDE.
[2020-03-18 09:01] VITALS: BP 146/80
[2020-03-18] MEDS: MULTIPLE VITAMIN TAB PO SCH (09:48)
[2020-03-18] MEDS: FOLIC ACID 1 MG TAB PO SCH (09:48)
[2020-03-18] MEDS: THIAMINE HCL 100 MG TAB PO SCH (09:48)
[2020-03-18] MEDS: TAMSULOSIN HYDROCHLORIDE 0.4 MG CAP PO SCH (09:48)
[2020-03-18] MEDS: METOPROLOL TARTRATE 25 MG TAB PO SCH ×2 (09:50→21:43)
[2020-03-18] MEDS: chlordiazePOXIDE HCL 25 MG CAP PO SCH ×2 (09:51→21:32)
[2020-03-18] MEDS: ISOSORBIDE MONONITRATE ER 60 MG TAB PO SCH (09:51)
--- NOTE | 2020-03-18 13:00 | NUR ---
PHYSICAL THERAPY AT BEDSIDE FOR EVALUATION AND AMBULATION,SEE P.T. NOTES
--- NOTE | 2020-03-18 16:41 | NUR ---
Nutrition Followup Notes Pt wt is 94.9 kg Pt was sleeping with no relatives at bedside when rounded this morning. Pt appetite is poor aeb ave 31% x 4 PO intake per RN doc. Pt with no distress per RN doc. Will continue to closely monitor pertinent labs, PO intake and skin status prn. Will followup in 3-5 days Est energy needs ABW 87 [id number] kcal (25-30 kcal/kg BW) Est protein needs 87-104g (1.0-1.2g/kg BW) will reassess prn. LABS: Gluc 147 H, ALB 3.2 L GI: No BM noted yet per RN doc BS: 13 mod risk, knee abrasion. Please refer to wound assessment report for full details. PES: Problem Altered nutrition related lab values r.t current chronic medical condition aeb hyperbil, hypocalcemia Comments 1) continue current plan of care 2) consider low fat diet
[2020-03-18 17:00] VITALS: BP 149/88
--- NOTE | 2020-03-18 17:21 | NUR ---
Assessment Regarding social service consult for SNF placement. Patient is a 69-year-old male who is confused. Unable to contact family. Will continue to monitor patient mental status.
--- NOTE | 2020-03-18 19:22 | NUR ---
STATUS UNCHANGED,NO DISTRESS NO DISCOMFORT,REPORT GIVEN TO INCOMING NOC SHIFT RN
--- NOTE | 2020-03-18 20:00 | NUR ---
Opening Shift Note Assumed care of patient, awake and alert. No S/S of distress/SOB or pain. Instructed on POC and to call for assist PRN, will continue to monitor for changes Q1hr and PRN.Sitter at bedside.
[2020-03-18] MEDS: LACTULOSE 20Gm/30ML SOLN PO SCH (21:32)
[2020-03-18 22:00] VITALS: BP 119/86
[2020-03-19 06:21] VITALS: BP 126/78
[2020-03-19 06:38] LABS: Calcium 8.6 mg/dL (8.5-10.1); Magnesium 1.9 mg/dL (1.6-2.6); Potassium 3.6 mmol/L (3.5-5.1)
[2020-03-19 06:41] LABS: BUN/Creatinine Ratio 27.8; Bilirubin, Total 2.2 mg/dL (0.2-1.0); Total Protein 6.5 g/dL (6.4-8.2)
[2020-03-19 07:06] LABS: Folate (Folic Acid) 18.11 ng/mL (5.38-24)
--- NOTE | 2020-03-19 07:24 | NUR ---
Report given to Kaley Pace, patient is resting no distress.
--- NOTE | 2020-03-19 07:59 | NUR ---
OPENING SHIFT NOTE Assumed care of patient. PT is awake and alert. No S/S of distress/SOB or pain. Bed in low and locked position. Sitter at bedside. Call light within reach. Instructed on POC and to call for assist PRN, will continue to monitor for changes Q1hr and PRN.
[2020-03-19 09:00] VITALS: BP 138/87
[2020-03-19] MEDS: LACTULOSE 20Gm/30ML SOLN PO SCH ×2 (09:55→22:03)
[2020-03-19] MEDS: MULTIPLE VITAMIN TAB PO SCH (09:57)
[2020-03-19] MEDS: THIAMINE HCL 100 MG TAB PO SCH (09:57)
[2020-03-19] MEDS: TAMSULOSIN HYDROCHLORIDE 0.4 MG CAP PO SCH (09:57)
[2020-03-19] MEDS: METOPROLOL TARTRATE 25 MG TAB PO SCH ×2 (09:57→22:05)
[2020-03-19] MEDS: chlordiazePOXIDE HCL 25 MG CAP PO SCH (09:57)
[2020-03-19] MEDS: FOLIC ACID 1 MG TAB PO SCH (09:57)
[2020-03-19] MEDS: ISOSORBIDE MONONITRATE ER 60 MG TAB PO SCH (09:59)
[2020-03-19] MEDS ORDERED: chlordiazePOXIDE HCL 5 MG CAP PO PRN (12:30)
[2020-03-19 13:00] VITALS: BP 133/80
[2020-03-19 17:00] VITALS: BP 123/73
--- NOTE | 2020-03-19 17:47 | NUR ---
Assessment Patient is is still confused. Unable to contact family. Will continue to monitor patient mental status.
[2020-03-19] MEDS: HYDROcodone-ACET 5/325MG TAB PO PRN (19:33)
[2020-03-19 21:48] VITALS: BP 125/20
--- NOTE | 2020-03-20 03:15 | NUR ---
PT RESUMED/REPORT RECEIVED FROM WILL PT CURRENTLY SLEEPING, HOB>30, BREATHING EVEN AND UNLABORED, NOTED NASAL CANULA OFF, ASSESSED PT ON RA, O2 97%, RR16, NO S/S OF SOB OR ANY DISCOMFORT, FALL PRECAUTIONS IN PLACE, BED ALARM ON, 2 SIDE RAILS AND BED POSITIONED LOW, WILL CONT AND MONITOR
--- NOTE | 2020-03-20 03:16 | NUR ---
ENDORSING CARE TO ROLLY MON.
[2020-03-20] MEDS: METOPROLOL TARTRATE 25 MG TAB PO SCH ×2 (07:51→21:16)
[2020-03-20 08:00] VITALS: BP 135/84
--- NOTE | 2020-03-20 09:25 | NUR ---
LINEN CHANGE PT NOTED TO HAVE AN INCONTINENT LOOSE BM, PT CLEANSED AND REPOSITIONED, SACRUM CONT TO BE BLANCHABLE RED/DARK, BLE ELEVATED ON PILLOWS TO OFFLOAD PRESSURE OFF HEELS, PT TOLERATED WELL, CONT CARE
[2020-03-20] MEDS: MULTIPLE VITAMIN TAB PO SCH (10:39)
[2020-03-20] MEDS: LACTULOSE 20Gm/30ML SOLN PO SCH ×2 (10:39→21:15)
[2020-03-20] MEDS: THIAMINE HCL 100 MG TAB PO SCH (10:39)
[2020-03-20] MEDS: TAMSULOSIN HYDROCHLORIDE 0.4 MG CAP PO SCH (10:39)
[2020-03-20] MEDS: CLOPIDOGREL BISULFATE 75 MG TAB PO SCH (10:39)
[2020-03-20] MEDS: ISOSORBIDE MONONITRATE ER 60 MG TAB PO SCH (10:39)
[2020-03-20] MEDS: FOLIC ACID 1 MG TAB PO SCH (10:39)
[2020-03-20 13:00] VITALS: BP 114/78
--- NOTE | 2020-03-20 15:22 | NUR ---
assessment Patient is a 69 year old male. Per patients sister Kt [phone] prior to admission patient lived home with her and functioned with the assistance of his daily caregiver. Per Kt patient drinks daily and then falls. Patients PCP is Dr Zavala. Kt informed me patient drives to the liquor store and buys his own alcohol. Patient has a fww and a wheelchair for home use. Patient is very weak and needs rehab. I informed Kt that patient has a ss consult for SNF placement. Kt agreed to rehab. Per Kt [facility] to be contacted and if patient has to go down the hill due to insurance she is fine with that. MD order has been sent to [facility]. Per Mesha she has accepted patient to [facility]. Room assignment will be given on discharge. I will get auth from [facility] for possible discharge in the morning. Kt verbalized understanding and agreed to discharge plan to SNF. Addendum: 03/20/20 at 1529 by Sadaf MCNAIR Amended: Links added.
[2020-03-20 16:45] VITALS: BP 106/69
--- NOTE | 2020-03-20 18:00 | NUR ---
DRESSING CHANGE TO LEFT FA AND SACRUM ORDERED PER WOUND CARE
--- NOTE | 2020-03-20 18:30 | NUR ---
BM PT NOTED TO HAVE AN INCONTINENT LOOSE BM, PT CLEANSED AND REPOSITIONED, SACRUM CONT TO BE BLANCHABLE RED/DARK, BLE ELEVATED ON PILLOWS TO OFFLOAD PRESSURE OFF HEELS, PT TOLERATED WELL, CONT CARE
--- NOTE | 2020-03-20 19:40 | NUR ---
assumed care, oriented to his name, pt. arousable, with mumbled voice, repositioned pt not in distress.
[2020-03-21 05:00] VITALS: BP 130/83
[2020-03-21 09:00] VITALS: BP 141/92
[2020-03-21] MEDS: LACTULOSE 20Gm/30ML SOLN PO SCH (11:03)
[2020-03-21] MEDS: FOLIC ACID 1 MG TAB PO SCH (11:03)
[2020-03-21] MEDS: TAMSULOSIN HYDROCHLORIDE 0.4 MG CAP PO SCH (11:04)
[2020-03-21] MEDS: THIAMINE HCL 100 MG TAB PO SCH (11:04)
[2020-03-21] MEDS: ISOSORBIDE MONONITRATE ER 60 MG TAB PO SCH (11:04)
[2020-03-21] MEDS: MULTIPLE VITAMIN TAB PO SCH (11:05)
[2020-03-21] MEDS: METOPROLOL TARTRATE 25 MG TAB PO SCH (11:05)
[2020-03-21] MEDS: CLOPIDOGREL BISULFATE 75 MG TAB PO SCH (11:05)
--- NOTE | 2020-03-21 11:42 | NUR ---
Nutrition Followup Notes Pt wt is 96.7 kg Pt was sleeping with no relatives at bedside when rounded this morning. Pt appetite is poor aeb ave 44% x 2 days PO intake per RN doc. Pt with no distress per RN doc. Will continue to closely monitor pertinent labs, PO intake and skin status prn. Est energy needs ABW 87 [id number] kcal (25-30 kcal/kg BW) Est protein needs 87-104g (1.0-1.2g/kg BW) will reassess prn. LABS: BUN 27H, Alb 3.0L GI: 6 BM 6/5 per RN doc BS: 12 high risk, knee abrasion. Please refer to wound assessment report for full details. PES: Problem Altered nutrition related lab values r.t current chronic medical condition aeb hyperbil, hypocalcemia Comments 1) continue current plan of care 2) consider low fat diet f/u 3-5 days
--- NOTE | 2020-03-21 12:38 | NUR ---
WOUND CARE NOTE: Wound care in to see patient for reevaluation of wound and skin integrity monitoring. Patient is resting in bed in Rm. 293A. Patient is awake but not fully oriented. Patient appears to be in no pain using Rick Thompson Faces Pain Scale. He needs assistance in turning and repositioning and his Henri score is 12. Skin assessment done with the assistance of patient' s nurse, ROLLY Ye. Patient's ecchymosis to arms, L chest and trunk, L lateral thigh and knees are remain intact and fading . Scabbed abrasions to keens remain the same, clean and dry, left open to air. Skin tear to L wrist continue to improve measuring 1x1cm with minimal drainage, no odor. Cleansed skin tear with NS,patted dry with gauze, applied Thera honey gel and covered with Opti foam gentle dressing. Patient passed small amount of pasty stool. Belinda care given, applied Z Guard cream, care pad changed. Patient's sacral remain intact with blanchable redness. Ecchymosis to L upper buttock is fading as well. New photograph of said skin issue are taken for reference. Patient tolerated well, repositioned for comfort facing his Lt. side, redistributed pressure points with pillows. Be din low position,call mari within reach, bed alarm on. RECOMMENDATION:Continuation of all wound care orders prescribed by MD, continue with skin/wound plan of care, continue monitoring by wound care while patient is hospitalized. Addendum: 03/21/20 at 1546 by Barbara Monzon RN Amended: Links added.
[2020-03-21 13:00] VITALS: BP 134/86
--- NOTE | 2020-03-21 15:25 | NUR ---
re-assessment Patient will be admitted to room 207 bed b at [facility] per Mesha. Dr Gray is the accepting MD. [facility] will transport at 530pm. Cassi LOFTON has been notified and given the number to call report [phone]. Per Flakita at [facility] auth for [facility] [id number], auth for [facility] [id number]. Rae patients sister verbalized understanding and agreed to discharge plan to SNF. Addendum: 03/21/20 at 1528 by Sadaf MCNAIR Amended: Links added.
[2020-03-21 17:02] VITALS: BP 126/81
--- NOTE | 2020-03-21 17:57 | NUR ---
TRANSFER VIA GURNEY BY [facility] STAFF TO [facility] NO SIGNS OF DISTRESS.
== END 2020-03-21 18:00 | DRG 280 ==
LOC: EDBD 22:04 → ER 22:06 → TELE 22:07 → TELE-WESTW 03-14 10:09
PROVIDERS: ADMIT Hospitalist; ATTEND Internal Medicine
DX: K70.40 Alcoholic hepatic failure without coma (principal); K70.9 Alcoholic liver disease, unspecified; J96.00 Acute respiratory failure, unspecified whether with hypoxia or hypercapnia; G93.41 Metabolic encephalopathy; D61.818 Other pancytopenia; D68.9 Coagulation defect, unspecified; E27.40 Unspecified adrenocortical insufficiency; E44.1 Mild protein-calorie malnutrition; E86.0 Dehydration; K20.9 Esophagitis, unspecified; R29.6 Repeated falls; N40.0 Benign prostatic hyperplasia without lower urinary tract symptoms; F10.239 Alcohol dependence with withdrawal, unspecified; Z20.828 Contact with and (suspected) exposure to other viral communicable diseases; I10 Essential (primary) hypertension; I25.10 Atherosclerotic heart disease of native coronary artery without angina pectoris; J44.9 Chronic obstructive pulmonary disease, unspecified; G31.9 Degenerative disease of nervous system, unspecified; Z82.49 Family history of ischemic heart disease and other diseases of the circulatory system; Z89.432 Acquired absence of left foot; Z68.24 Body mass index [BMI] 24.0-24.9, adult
CPT/HCPCS: 36415; 70450; 74176; 80048; 80053; 80061; 82140; 82150; 82607; 82746; 82962; 83690; 83735; 84100; 84425; 84484; 85025; 85610; 85730; 93005; 97163; 97530; G0378; J2405

== ENCOUNTER 2020-11-08 23:13 | Inpatient (IN) | payer MEDICARE, MEDICAID ==
[~2020-11-08] VITALS: Ht 170.2 cm; Wt 68.0 kg
[~2020-11-08 23:13] MED LIST changes: +ATOR-47 PO; +CLOP75TA70 PO; +GABA-339 PO; +HYDR-531 PO; +IPRAAER6 IN; -METO25TA93; +METO25TA93 PO; +NITR0.4S29 SL; +TAMS0.4C36 PO; -TAMS1CAP25; -THIA100T5 PO
[2020-11-09] MEDS ORDERED: SODIUM CHLORIDE 0.9% 1,000 ML IV ONE ×2 (00:15→03:15)
[2020-11-09] MEDS ORDERED: HYDROmorphone HCL 2 MG/ML VL IV ONE (01:15)
[2020-11-09] MEDS ORDERED: ONDANSETRON HCL 4 MG/2 ML VIAL IV ONE (01:15)
[2020-11-09 01:38] LABS: Hemoglobin 10.4 g/dL (13.5-17.5); White Blood Cell 5.8 10^3/uL (4.4-10.8)
[2020-11-09 01:44] LABS: Hematocrit 31.3 % (41.0-53.0); Mean Corpuscular Hemoglobin 28.3 pg (28.0-32.0); Mean Corpuscular Hgb Conc. 33.1 g/dL (32.0-36.0); Mean Corpuscular Volume 85.3 fL (80.0-100.0); Platelet Count (auto) 175 10^3/uL (140-450); Red Blood Cells 3.67 10^6/uL (4.5-5.90)
[2020-11-09] MEDS ORDERED: cefTRIAXone 1GM/50ML D5W 50 ML IV ONE (01:45)
[2020-11-09] MEDS ORDERED: VANCOMYCIN 1GM/250ML 250 ML IV ONE (01:45)
[2020-11-09 01:51] LABS: INR 1.91 (0.9-1.15); Partial Thromboplastin Time 44.7 sec (23.0-31.2)
[2020-11-09 01:52] LABS: Basophils % (manual) 0 (0.0-2.0); Blast Cells 0; Eosinophils % (manual) 0 (0-7); Metamyelocytes % 0; Monocytes % (manual) 0 (0-12); Myelocytes % 0; Promyelocytes % 0; Reactive Lymphocytes 0; Red Cell Distribution Width 22.7 % (11.8-14.3)
[2020-11-09 02:01] LABS: Albumin 2.1 g/dL (3.4-5.0); BUN/Creatinine Ratio 26.9; Calcium 7.7 mg/dL (8.5-10.1)
[2020-11-09 02:03] LABS: Lactic Acid w/Reflex 7.3 mmol/L (0.4-2.0)
[2020-11-09 02:17] LABS: Urine Bacteria NONE SEEN /hpf (None Seen); Urine Blood Negative /uL (Negative); Urine Budding Yeast MODERATE /hpf (None Seen); Urine Hyaline Cast MANY /lpf (0 - 2); Urine Specific Gravity 1.017 (1.001-1.035); Urine Sperm PRESENT /hpf (None Seen); Urine WBC 24 /hpf (0 - 3); Urine WBC Clumps PRESENT /hpf (None Seen)
[2020-11-09 02:31] LABS: Band Neutrophils % (manual) 40; Lymphocytes % (manual) 2 (10.0-50.0)
[2020-11-09] MEDS ORDERED: NOREPINEPHRINE 8 MG/250ML KIT 250 ML IV ONE (02:53)
[2020-11-09] MEDS: NOREPINEPHRINE 8 MG/250ML KIT 250 ML IV SCH (03:23)
[2020-11-09] MEDS ORDERED: DEXTROSE (50%) 50ML SYRG IV ONE ×3 (04:00→16:45)
[2020-11-09] MEDS ORDERED: NITROGLYCERIN 0.4 MG SL TAB SL PRN (05:45)
[2020-11-09] MEDS ORDERED: DOCUSATE SOD 100 MG CAP PO PRN (05:45)
[2020-11-09] MEDS ORDERED: ONDANSETRON HCL 4 MG/2 ML VIAL IV PRN (05:45)
[2020-11-09] MEDS ORDERED: VANCOMYCIN PER PHARMACY 0 MG IV SCH (05:45)
[2020-11-09] MEDS ORDERED: D5W/SOD CHLO 0.9% 1,000 ML IV SCH (05:45)
[2020-11-09] MEDS ORDERED: ACETAMINOPHEN 325 MG TAB PO PRN (05:45)
[2020-11-09] MEDS ORDERED: HYDROmorphone HCL 2 MG/ML VL IV PRN (05:45)
[2020-11-09] MEDS: ALBUMIN 25% 100 ML IV SCH ×3 (07:11→21:45)
[2020-11-09 07:22] LABS: Hematocrit 32.8 % (41.0-53.0); Hemoglobin 10.7 g/dL (13.5-17.5); Mean Corpuscular Hemoglobin 28.3 pg (28.0-32.0); Mean Corpuscular Hgb Conc. 32.7 g/dL (32.0-36.0); Mean Corpuscular Volume 86.3 fL (80.0-100.0); Platelet Count (auto) 176 10^3/uL (140-450); White Blood Cell 8.2 10^3/uL (4.4-10.8)
[2020-11-09 07:41] LABS: Lactic Acid w/Reflex 9.8 mmol/L (0.4-2.0)
[2020-11-09 07:59] LABS: Basophils % (manual) 0 (0.0-2.0); Blast Cells 0; Eosinophils % (manual) 0 (0-7); Reactive Lymphocytes 0; Red Cell Distribution Width 22.8 % (11.8-14.3)
[2020-11-09 09:09] LABS: Albumin 1.9 g/dL (3.4-5.0); Calcium 6.9 mg/dL (8.5-10.1); Potassium 3.8 mmol/L (3.5-5.1)
[2020-11-09 09:12] LABS: BUN/Creatinine Ratio 22.7; Bilirubin, Total 3.7 mg/dL (0.2-1.0)
[2020-11-09 10:00] LABS: Band Neutrophils % (manual) 46; Lymphocytes % (manual) 3 (10.0-50.0); Metamyelocytes % 10; Monocytes % (manual) 2 (0-12); Myelocytes % 4; Promyelocytes % 1
[2020-11-09] MEDS ORDERED: ZINC SULFATE 220mg CAP or TAB PO SCH (10:00)
[2020-11-09] MEDS: ASCORBIC ACID 500 MG TAB PO SCH ×2 (10:00→22:00)
[2020-11-09] MEDS ORDERED: MULTIPLE VITAMIN TAB PO SCH (10:00)
[2020-11-09] MEDS: FUROSEMIDE 20 MG/2 ML VIAL IV SCH (10:09)
[2020-11-09] MEDS: FAMOTIDINE (10MG/ML) 2ML VL IV SCH ×2 (10:09→22:00)
[2020-11-09] MEDS: cefTRIAXone 1GM/50ML D5W 50 ML IV SCH (10:10)
[2020-11-09] MEDS ORDERED: DEXTROSE 50% SYRINGE 50 ML IV ONE (12:21)
[2020-11-09] MEDS: VANCOMYCIN 1GM/250ML 250 ML IV SCH ×2 (14:28→22:00)
[2020-11-09] MEDS ORDERED: D5W/SOD CHLO 0.9% 1,000 ML IV ONE (16:45)
[2020-11-09] MEDS: DEXTROSE (50%) 50ML SYRG IV PRN (17:27)
[2020-11-09] MEDS: ACCU-CHEK COMFORT CURVE STRIP VI SCH ×2 (18:25→22:00)
[2020-11-10] MEDS: DEXTROSE (50%) 50ML SYRG IV PRN ×2 (01:47→18:27)
[2020-11-10] MEDS: ACCU-CHEK COMFORT CURVE STRIP VI SCH ×6 (01:48→21:34)
[2020-11-10] MEDS: NOREPINEPHRINE 8 MG/250ML KIT 250 ML IV SCH (03:40)
[2020-11-10 07:31] LABS: Albumin 2.3 g/dL (3.4-5.0); Potassium 4.8 mmol/L (3.5-5.1)
[2020-11-10 07:35] LABS: BUN/Creatinine Ratio 15.7; Bilirubin, Total 4.4 mg/dL (0.2-1.0)
[2020-11-10 07:36] LABS: Hematocrit 28.9 % (41.0-53.0); Hemoglobin 9.4 g/dL (13.5-17.5); Mean Corpuscular Hemoglobin 28.1 pg (28.0-32.0); Mean Corpuscular Hgb Conc. 32.4 g/dL (32.0-36.0); Mean Corpuscular Volume 86.7 fL (80.0-100.0); Platelet Count (auto) 161 10^3/uL (140-450); Red Blood Cells 3.33 10^6/uL (4.5-5.90); Red Cell Distribution Width 22.7 % (11.8-14.3); White Blood Cell 21.1 10^3/uL (4.4-10.8)
[2020-11-10 07:38] LABS: Basophils % (manual) 0 (0.0-2.0); Blast Cells 0; Eosinophils % (manual) 0 (0-7); Lymphocytes % (manual) 0 (10.0-50.0); Myelocytes % 0; Promyelocytes % 0; Reactive Lymphocytes 0
[2020-11-10 08:54] LABS: Band Neutrophils % (manual) 25; Metamyelocytes % 3; Monocytes % (manual) 3 (0-12)
[2020-11-10] MEDS: cefTRIAXone 1GM/50ML D5W 50 ML IV SCH (09:23)
[2020-11-10] MEDS ORDERED: ENOXAPARIN SOD 80 MG/0.8ML SYRINGE SC ONE (10:00)
[2020-11-10] MEDS: FUROSEMIDE 20 MG/2 ML VIAL IV SCH (10:00)
[2020-11-10] MEDS: FAMOTIDINE (10MG/ML) 2ML VL IV SCH (11:30)
[2020-11-10] MEDS ORDERED: CLOPIDOGREL BISULFATE 75 MG TAB PO ONE (11:30)
[2020-11-10] MEDS ORDERED: ENOXAPARIN SOD 100 MG/1 ML SYRINGE SC ONE (11:30)
[2020-11-10] MEDS: SODIUM BICARBONATE 50ML VIAL 50 ML in SOD CHL 0.45% 1,000 ML IV SCH ×2 (13:11→15:47)
[2020-11-10] MEDS: PHENYLEPHRINE IV 250 ML IV SCH ×2 (15:30→21:35)
[2020-11-10] MEDS ORDERED: SODIUM BICARBONATE 8.4 % INJ 50ML VIAL IV ONE (16:52)
[2020-11-10] MEDS ORDERED: ALBUMIN 5% 250 ML IV ONE (20:30)
[2020-11-11] MEDS: ACCU-CHEK COMFORT CURVE STRIP VI SCH ×6 (02:29→22:00)
[2020-11-11] MEDS: NOREPINEPHRINE 8 MG/250ML KIT 250 ML IV SCH ×2 (03:15→11:57)
[2020-11-11 07:40] LABS: Albumin 2.5 g/dL (3.4-5.0); BUN/Creatinine Ratio 18.8; Calcium 7.2 mg/dL (8.5-10.1); Potassium 5.1 mmol/L (3.5-5.1)
[2020-11-11 07:43] LABS: Bilirubin, Total 6.2 mg/dL (0.2-1.0); Total Protein 5.1 g/dL (6.4-8.2)
[2020-11-11] MEDS: PHENYLEPHRINE IV 250 ML IV SCH ×2 (08:10→16:30)
[2020-11-11] MEDS: cefTRIAXone 1GM/50ML D5W 50 ML IV SCH (08:15)
[2020-11-11] MEDS: FUROSEMIDE 20 MG/2 ML VIAL IV SCH (09:15)
[2020-11-11] MEDS: ENOXAPARIN SOD 80 MG/0.8ML SYRINGE SC SCH (09:15)
[2020-11-11] MEDS: SODIUM BICARBONATE 50ML VIAL 50 ML in SOD CHL 0.45% 1,000 ML IV SCH (09:16)
[2020-11-11] MEDS: FLUCONAZOLE 200MG/100ML 100 ML IV SCH ×2 (09:22→10:50)
[2020-11-11] MEDS ORDERED: FAMOTIDINE (10MG/ML) 2ML VL IV SCH (10:00)
[2020-11-11] MEDS ORDERED: SODIUM BICARBONATE 50ML VIAL 50 ML in SOD CHL 0.45% 1,000 ML IV SCH (11:00)
[2020-11-11 11:11] LABS: Hematocrit 32.9 % (41.0-53.0); Hemoglobin 10.2 g/dL (13.5-17.5); Mean Corpuscular Hemoglobin 27.1 pg (28.0-32.0); Mean Corpuscular Volume 87.4 fL (80.0-100.0); Platelet Count (auto) 126 10^3/uL (140-450); Red Blood Cells 3.76 10^6/uL (4.5-5.90); White Blood Cell 25.6 10^3/uL (4.4-10.8)
[2020-11-11 11:20] LABS: Red Cell Distribution Width 22.6 % (11.8-14.3)
[2020-11-11 11:21] LABS: Basophils % (manual) 0 (0.0-2.0); Blast Cells 0; Eosinophils % (manual) 0 (0-7); Promyelocytes % 0; Reactive Lymphocytes 0
[2020-11-11] MEDS: DOPamine 1600MCG/ML D5W 250 ML IV SCH (11:30)
[2020-11-11 12:15] LABS: Creatinine, Urine 87 mg/dL (30.0-125.0); Sodium Urine 24 mmol/L (40-220)
[2020-11-11 13:25] LABS: Band Neutrophils % (manual) 20; Lymphocytes % (manual) 2 (10.0-50.0); Metamyelocytes % 4; Monocytes % (manual) 3 (0-12); Myelocytes % 1
[2020-11-11] MEDS: DEXTROSE (50%) 50ML SYRG IV PRN (14:05)
[2020-11-11] MEDS: D5W/SOD CHLO 0.9% 1,000 ML IV SCH (14:05)
[2020-11-12] MEDS: NOREPINEPHRINE 8 MG/250ML KIT 250 ML IV SCH ×3 (00:02→20:24)
[2020-11-12] MEDS: D5W/SOD CHLO 0.9% 1,000 ML IV SCH ×3 (00:05→20:15)
[2020-11-12] MEDS: PHENYLEPHRINE IV 250 ML IV SCH ×3 (00:50→10:48)
[2020-11-12] MEDS: ACCU-CHEK COMFORT CURVE STRIP VI SCH ×6 (02:19→21:54)
[2020-11-12 07:02] LABS: Hematocrit 32.3 % (41.0-53.0); Hemoglobin 10.7 g/dL (13.5-17.5); Mean Corpuscular Hgb Conc. 33.2 g/dL (32.0-36.0); Mean Corpuscular Volume 84.4 fL (80.0-100.0); Platelet Count (auto) 89 10^3/uL (140-450); Red Blood Cells 3.83 10^6/uL (4.5-5.90); White Blood Cell 17.6 10^3/uL (4.4-10.8)
[2020-11-12 07:18] LABS: BUN/Creatinine Ratio 21.9; Bilirubin, Total 8.2 mg/dL (0.2-1.0); Calcium 6.9 mg/dL (8.5-10.1); Total Protein 4.9 g/dL (6.4-8.2)
[2020-11-12 07:29] LABS: Potassium 4.9 mmol/L (3.5-5.1)
[2020-11-12 07:31] LABS: Red Cell Distribution Width 22.4 % (11.8-14.3)
[2020-11-12 07:33] LABS: Basophils % (manual) 0 (0.0-2.0); Blast Cells 0; Eosinophils % (manual) 0 (0-7); Metamyelocytes % 0; Myelocytes % 0; Promyelocytes % 0; Reactive Lymphocytes 0
[2020-11-12] MEDS: cefTRIAXone 1GM/50ML D5W 50 ML IV SCH (08:58)
[2020-11-12] MEDS: FUROSEMIDE 20 MG/2 ML VIAL IV SCH (08:58)
[2020-11-12] MEDS: FLUCONAZOLE 200MG/100ML 100 ML IV SCH ×2 (08:58→10:48)
[2020-11-12] MEDS: ENOXAPARIN SOD 80 MG/0.8ML SYRINGE SC SCH (08:59)
[2020-11-12 09:06] LABS: Band Neutrophils % (manual) 3; Lymphocytes % (manual) 1 (10.0-50.0); Monocytes % (manual) 4 (0-12)
[2020-11-12] MEDS: DOPamine 1600MCG/ML D5W 250 ML IV SCH (10:45)
[2020-11-13] MEDS: PHENYLEPHRINE IV 250 ML IV SCH ×2 (00:30→06:52)
[2020-11-13] MEDS: ACCU-CHEK COMFORT CURVE STRIP VI SCH ×4 (01:57→13:42)
[2020-11-13 05:54] LABS: Hematocrit 31.9 % (41.0-53.0); Hemoglobin 10.8 g/dL (13.5-17.5); Mean Corpuscular Hgb Conc. 33.8 g/dL (32.0-36.0); Mean Corpuscular Volume 82.8 fL (80.0-100.0); Platelet Count (auto) 44 10^3/uL (140-450); Red Blood Cells 3.85 10^6/uL (4.5-5.90); White Blood Cell 15.8 10^3/uL (4.4-10.8)
[2020-11-13] MEDS: D5W/SOD CHLO 0.9% 1,000 ML IV SCH ×2 (06:07→13:53)
[2020-11-13 06:17] LABS: Albumin 1.8 g/dL (3.4-5.0); BUN/Creatinine Ratio 24.3; Calcium 7.3 mg/dL (8.5-10.1); Potassium 4.1 mmol/L (3.5-5.1)
[2020-11-13 06:19] LABS: Bilirubin, Total 9.8 mg/dL (0.2-1.0); Total Protein 4.4 g/dL (6.4-8.2)
[2020-11-13 06:49] LABS: Basophils % (manual) 0 (0.0-2.0); Blast Cells 0; Eosinophils % (manual) 0 (0-7); Metamyelocytes % 0; Myelocytes % 0; Promyelocytes % 0; Reactive Lymphocytes 0; Red Cell Distribution Width 21.8 % (11.8-14.3)
[2020-11-13 09:00] LABS: Band Neutrophils % (manual) 1; Lymphocytes % (manual) 2 (10.0-50.0); Monocytes % (manual) 5 (0-12)
[2020-11-13] MEDS: cefTRIAXone 1GM/50ML D5W 50 ML IV SCH (09:00)
[2020-11-13] MEDS: FUROSEMIDE 20 MG/2 ML VIAL IV SCH (09:42)
[2020-11-13] MEDS: MIDODRINE HCL 10 MG TAB PO SCH ×2 (09:43→12:00)
[2020-11-13] MEDS: ENOXAPARIN SOD 80 MG/0.8ML SYRINGE SC SCH (09:43)
[2020-11-13] MEDS: FLUCONAZOLE 200MG/100ML 100 ML IV SCH ×2 (10:00→10:45)
[2020-11-13] MEDS ORDERED: FAMOTIDINE (10MG/ML) 2ML VL IV SCH (10:00)
[2020-11-13] MEDS: DOPamine 1600MCG/ML D5W 250 ML IV SCH (10:44)
[2020-11-13] MEDS: DEXTROSE (50%) 50ML SYRG IV PRN (13:53)
[2020-11-13 17:27] VITALS: BP 99/65
== END 2020-11-13 17:51 | disposition hospice, home (50) | DRG 720 ==
LOC: ER 23:13 → EDBD 23:13 → TELE 23:14
PROVIDERS: ADMIT Nurse Practitioner Family; ATTEND Family Medicine
PROC: 05HY33Z Insertion of Infusion Device into Upper Vein, Percutaneous Approach (ICD-10-PCS; principal; 2020-11-10)
DX: A41.9 Sepsis, unspecified organism (principal); R65.21 Severe sepsis with septic shock; I21.4 Non-ST elevation (NSTEMI) myocardial infarction; G93.41 Metabolic encephalopathy; D68.9 Coagulation defect, unspecified; N17.0 Acute kidney failure with tubular necrosis; E87.1 Hypo-osmolality and hyponatremia; N39.0 Urinary tract infection, site not specified; E86.0 Dehydration; D64.9 Anemia, unspecified; I25.10 Atherosclerotic heart disease of native coronary artery without angina pectoris; J44.9 Chronic obstructive pulmonary disease, unspecified; I87.2 Venous insufficiency (chronic) (peripheral); I11.0 Hypertensive heart disease with heart failure; L03.115 Cellulitis of right lower limb; L03.116 Cellulitis of left lower limb; N40.0 Benign prostatic hyperplasia without lower urinary tract symptoms; Z20.822 Contact with and (suspected) exposure to COVID-19; Z66 Do not resuscitate; Z82.49 Family history of ischemic heart disease and other diseases of the circulatory system; Z86.73 Personal history of transient ischemic attack (TIA), and cerebral infarction without residual deficits; Z90.49 Acquired absence of other specified parts of digestive tract; Z95.5 Presence of coronary angioplasty implant and graft; A49.9 Bacterial infection, unspecified; I73.9 Peripheral vascular disease, unspecified; I50.82 Biventricular heart failure; I35.0 Nonrheumatic aortic (valve) stenosis; I77.1 Stricture of artery; Z88.5 Allergy status to narcotic agent; Z88.8 Allergy status to other drugs, medicaments and biological substances
CPT/HCPCS: 36415; 36600; 70450; 71045; 76775; 80053; 80202; 81001; 82570; 82805; 82962; 83605; 83880; 84300; 84484; 85007; 85027; 85610; 85730; 87040; 87077; 87086; 87088; 87186; 87426; 93005; 93306; 93926; 93970; 96365; 96366; 96375; G0378; J0696; J1450; J2405; J3490; J7042; P9047